=== PATIENT | male | born 1960 | race Caucasian/White ===

== ENCOUNTER → 2019-11-22 | Outpatient (CLI) | payer OTHER ==
--- NOTE | 2019-11-22 20:06 | CONS ---
CONSULTATION DATE OF SERVICE: 11/22/2019 This patient is a 59-year-old gentleman who has been evaluated in the sleep center for possible obstructive sleep apnea-hypopnea syndrome. HISTORY OF PRESENT ILLNESS/SLEEP-WAKE EVALUATION: Patient's usual sleep schedule is from 11 p.m. to 6:30 a.m. on working days and from 11 p.m. to 7:30 a.m. on weekends. Usually no problems with falling asleep. No TV in bedroom. He sleeps on the side position. According to his , he has loud snoring, witnessed episodes of stopped breathing during sleep, awakenings with choking and nocturia. The patient is also grinding his teeth at night. The patient also has symptoms of kicking during sleep. In the morning the patient wakes up tired, falling asleep during the day. [place] Sleepiness Scale is significantly increased at 14. PAST MEDICAL HISTORY: Positive for hypothyroidism. PAST SURGICAL HISTORY: Positive for right knee ACL and MCL surgery in 1985 and 1999, right wrist bone graft in 1977. MEDICATIONS: Levothyroxine. SOCIAL HISTORY: Negative for smoking or using alcohol. FAMILY HISTORY: Positive for arthritis, headaches, thyroid problems, mental illness, restless legs. REVIEW OF SYSTEMS: Awakenings from sleep, tiredness and sleepiness during the day. No history of hypnagogic hallucinations, sleep paralysis or cataplexy. PHYSICAL EXAMINATION: GENERAL: A pleasant gentleman without distress. VITAL SIGNS: BP 124/69, HR 76, RR 15, height 5 feet 8-1/2 inches, weight 221.4, BMI 33.1, temperature 98.1, oxygen saturation at room air 96%. HEENT: PERRLA, EOMI. Evaluation of oropharynx showed tongue protrudes midline. Extremely low position of soft palate. Mallampati IV. NECK: Supple. No JVD. Thyroid is not palpable. Wide neck; 18 inches in circumference. LUNGS: Clear to percussion and to auscultation. Good air exchange. No wheezing or rhonchi. HEART: S1, S2 regular. No murmurs, gallops or rubs. ABDOMEN: Slightly obese. EXTREMITIES: No clubbing or cyanosis. MEDIA ACCOUNT EXECUTIVE: Awake, alert, and oriented X3. Cranial nerves 2 to 7 intact. There is no fasciculation or atrophy. noted. No focal deficits observed. IMPRESSION: 1. Loud snoring, witnessed episodes of stopped breathing during sleep, extremely low position of soft palate, wide neck, sleepiness, witnessed episodes; obstructive sleep/hypopnea syndrome. 2. Mild obesity. BMI 33.1. 3. History of kicking at night; possibly periodic limb movements. 4. Hypothyroidism. 5. Status post right knee surgery. 6. Status post right wrist bone graft. PLAN: 1. Polysomnography for evaluation of patient's breathing during sleep. 2. CPAP/BiPAP titration if sleep study confirms obstructive sleep apnea-hypopnea syndrome. 3. Preferable position during sleep on the side. 4. No driving if patient feels any sleepiness. 5. I will see patient for follow up visit to explain results of testing and following plan. Thank you very much for referring this patient for consultation. Sincerely, Davis Lott MD, PhD, FAASM Diplomat of [place] [employer] [place] [employer] [facility] MMODL / IJN: [id number] /
== END | disposition home or self-care (01) ==
LOC: SLEEP 14:05
PROVIDERS: ATTEND Internal Medicine
DX: G47.33 Obstructive sleep apnea (adult) (pediatric) (principal); E66.9 Obesity, unspecified; Z68.33 Body mass index [BMI] 33.0-33.9, adult; Z98.890 Other specified postprocedural states; Z99.89 Dependence on other enabling machines and devices
CPT/HCPCS: 99211